=== PATIENT | male | born 1990 ===

== ENCOUNTER → 2018-09-16 23:02 | Outpatient (REF) | payer OTHER, SELFPAY ==
[2018-09-19 21:42] LABS: RPR Screen Nonreactive (Nonreactive)
== END ==
LOC: LAB 23:02
PROVIDERS: Visit Provider Family Medicine
DX: Z11.3 Encounter for screening for infections with a predominantly sexual mode of transmission (principal)
CPT/HCPCS: 36415; 86592; 87591